=== PATIENT | female | born 1985 | race Caucasian/White ===

== ENCOUNTER 2020-09-18 09:00 | Outpatient (RCR) | payer OTHER, SELFPAY ==
--- NOTE | 2020-09-18 10:05 | BH.SGPN.GN ---
Behaviors/Verbalizations/Mental Status: [] Eye contact is good. Motor activity is appropriate. Appearance is casual. Speech is Appropriate. Mood is anxious. Affect is congruent. Thoughts are linear and logical. No evidence of psychosis. Client Response/Progress/Benefit: [] Pt was an active participant in group discussion and activity. Attentive during psychoeducation. Group identified the benefits of making changes or taking action on their mental wellness which included; increased confidence, healthier relationships, improved emotional health, reduction of anxiety, increased awareness, and improved recognition of triggers. Pt stated that the 3 biggest obstacles for her to taking action or making changes in his life are anxiety, toxic family, and unhealthy boundaries. Increased awareness of importance of taking action in mental health and obstacles that keep them from taking action. Will continue in IOP to prevent decompensation, increase healthy coping strategies, and improve functioning to return to work. Narrative Note: []
--- NOTE | 2020-09-18 11:10 | BH.SGPN.GN ---
Behaviors/Verbalizations/Mental Status: []Client alert and oriented, casually dressed and appropriately groomed. Eye contact good. Motor activity appropriate. Speech within normal limits. Affect constricted, mood anxious. Thoughts linear, logical, no signs of hallucinations or delusions. Client Response/Progress/Benefit: []Client responded well to session, taking notes and participating in worksheet discussion. Client set a goal to gain control over her use of unhealthy boundaries. Client wants to be able to work on this by saying no to someone at least once a week. Client stated she will keep self accountable by writing in journal the times she set a boundary. Worked with group to brainstorm ideas to help increase follow through of goal. Appeared to benefit from identifying a small goal to benefit mental health. Will continue IOP tx to prevent decompensation, increase healthy coping skills, and improve confidence. Narrative Note: []
--- NOTE | 2020-09-19 09:00 | BH.SGPN.GN ---
Behaviors/Verbalizations/Mental Status: [] Eye contact is good. Motor activity is appropriate. Appearance is casual. Speech is Appropriate. Mood is anxious. Affect is congruent. Thoughts are linear and logical. No evidence of psychosis. Reviewed daily check in sheet and no reports of suicidal ideations or intent. Client Response/Progress/Benefit: [] Pt participated when prompted. Attentive. Emotion for today is nervous. Daily symptom tracker notes 3/5 for anxiety and 2/5 for agitation. Shared that a mental health win was coming back for her 2nd day. Shared that she is less anxious today. Increased motivation yesterday. 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 Fear of coaching wrong or having other parents become upset with her. She worked through this and helped out which she states went well. Progress noted per pt report. Benefited from group support and encouragement. Will continue in IOP to prevent decompensation and improve functioning to return to work. Narrative Note: []
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
--- NOTE | 2020-09-19 11:08 | BH.SGPN.GN ---
Behaviors/Verbalizations/Mental Status: []Client alert and oriented, neatly dressed and groomed. Eye contact good. Motor activity appropriate. Speech within normal limits. Affect congruent, mood anxious. Thoughts linear, logical, no signs of hallucinations or delusions. Client Response/Progress/Benefit: []Client engaged in session AEB contributing to discussion and engaging in activity. Client did well to review current conflict style and it?s impact on mental health. Attentive and taking notes during discussion on strategies for more effectively managing conflict in own life. Client identified wanting to work on addressing conflict rather than avoiding it. Client plans to work on this by expressing her feelings with words rather than behaviors. Appeared to benefit from learning strategies to better manage conflict. First week of IOP tx. Will continue IOP tx to prevent decompensation, learn healthy coping skills, and increase self-awareness. Narrative Note: []
[2020-09-19 11:09] VITALS: BP 150/105; PULSE 106
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
--- NOTE | 2020-09-19 13:27 | BH.DR.ITP ---
Initial Treatment Plan Patient Information Visit Information: ADMISSION DATE: EXPECTED LOS: 4-6 weeks Problems/Symptoms Problem #1:: Depression Symptom:: Sadness, crying, worthlessness, guilt, anhedonia, biological disruption of sleep and appetite, decreased concentration Problem #2:: Anxiety Symptom:: Worry, rumination, panic attacks
--- NOTE | 2020-09-20 09:05 | BH.SGPN.GN ---
Behaviors/Verbalizations/Mental Status: [] Eye contact is good. Motor activity is appropriate. Appearance is casual. Speech is Appropriate. Mood is anxious. Affect is congruent. Thoughts are linear and logical. No evidence of psychosis. Reviewed daily check in sheet and no reports of suicidal ideations or intent. Client Response/Progress/Benefit: [] Pt participated when prompted. Attentive. Emotion for today is content. Mental health wins were identified. She reports panic attacks yesterday in response to her employer asking her for her password for a program. She began to ruminate and catastrophize that her employer is going to fire her and that they are looking for a replacement. She attempted to challenge these thoughts however limited benefit. These thoughts then led to other anxiety-producing thoughts ultimately leading to a panic attack. Group provided feedback and offered some suggestions which was beneficial. Limited progress noted. Pt will continue in IOP to improve functioning to return to work, increase healthy coping, and prevent decompensation. Narrative Note: []
--- NOTE | 2020-09-20 10:15 | BH.SGPN.GN ---
Behaviors/Verbalizations/Mental Status: []Client alert and oriented, neatly dressed and groomed. Eye contact good. Motor activity appropriate. Speech within normal limits. Affect constricted, mood anxious. Thoughts linear, logical, no signs of hallucinations or delusions. Client Response/Progress/Benefit: []Client was an engaged participant AEB client listening attentively to others. Client quiet, but she was nodding frequently and taking notes. The group worked together to identify barriers that keep one from choosing a new and healthier path to mental wellness. Attentive during psychoeducation on the chapters of life. Benefited from increased awareness and education on barriers to choosing new wellness paths and chapters of life. Client identified being in chapter 2 as client shared ?I like to pretend that things will change, but then they don?t change.? Client recognizes this leads to client staying ?stuck? for longer periods of time and can reinforce depression. Will continue IOP tx to prevent decompensation, improve daily functioning, and reduce distorted thoughts. Narrative Note: []
--- NOTE | 2020-09-20 11:15 | BH.SGPN.GN ---
Behaviors/Verbalizations/Mental Status: [] Client alert and oriented, casual dress, hygiene appropriate. Eye contact fair. Motor activity appropriate, at times. speech and tone WNL. Affect congruent. mood anxious. Thoughts linear, logical, no signs of hallucinations or delusions. Client Response/Progress/Benefit: []Client engaged in session AEB listening to discussion and provided input at times. Client attentive during psychoeducation about importance of maintenance plans. Client did well to work with the group to brainstorm strategies to promote making progress towards their desired chapter. Pt completed provided maintenance plan worksheet in small group. Pt identified personal triggers as: anger, sister, father's helplessness, and work. Identified warning signs as: increased stress, not sleeping, angry all the time, and throwing up. Pt identified healthy coping skills as: deep breathing, walking, and communicating needs. Seemed to benefit from increasing awareness of triggers, warning signs and coping skills. Will continue IOP tx to prevent decompensation, increase healthy coping and improve daily functioning.
--- NOTE | 2020-09-25 10:08 | BH.SGPN.GN ---
Behaviors/Verbalizations/Mental Status: []Client alert and oriented, neat and casual dress, hygiene tended to. Eye contact good. Motor activity appropriate. Speech within normal limits. Affect constricted, mood anxious and dysthymic. Thoughts linear, logical, no signs of hallucinations or delusions. Client Response/Progress/Benefit: [] Engaged participant AEB pt providing input throughout session and listening attentively to others. Engaged during psychoeducation portion reviewing fixed mindset. Nodding in agreement regarding examples shared by fellow participants. Pt worked with group to identify how a fixed mindset can impact mental health which included: keeping people stuck, reinforcing fear of failure, giving up, and negative self-talk. Able to identify personal examples of fixed thoughts which included ?I?ll never be good enough? and ?I?m never going to feel better?. Client shared that she believes these fixed thoughts in part because they are messages she has been herself for much of her life. Seemed to benefit from group by increasing awareness of how one's mindset can impact mental health and ability to cope. Pt will continue IOP tx this week to continue to promote healthy coping skills and continue to improve mental health sx management. Narrative Note: []
--- NOTE | 2020-09-25 10:31 | BH.MDN_ITS ---
Multi-Disciplinary Note - Note 60-min Individual Time Started:: 09:00 Date: 09/25/20 Purpose of session/treatment goals addressed:: Used session to review symptoms and progress in IOP, to obtain hx, and to begin treatment plan Eye Contact:: Good Motor Activity:: Restless Appearance:: Casual Speech:: Appropriate Mood:: Anxious Affect:: Congruent Thoughts:: Linear, Logical, No evidence of hallucinations/delusions noted Staff Interventions:: Provided education on mistaken beliefs and cognitive distortions. Provided worksheet. Started treatment plan. Client Response:: Pt shared that she laid around all weekend. Reports no m otivation to complete any tasks. Reports depression, hopelessness, and anxiety. Primary stressors reported to be dirty/cluttered house, increased responsibility since her mother , work, and negative view of self (Self-critical). Since her mother's pt has reported that her father relies on her for cooking, cleaning, landscaping, grocery, and finances. She began to noticed that this was impacting her overall motivation, relationship with daughter, and work. Started missing work beginning on January. States that she would wake up and start to get ready for work then begin to Freak out. Trigger was the clutter and uncleanliness of her house. This would lead to panic and ultimately depression and hopelessness. Symptoms would worsen and she would not go to work feeling to overwhelmed. When she stayed home she would not attempt to address the house due to lack of motivation. Also has anxiety about being in public for fear of seeing someone she knows (poor self-image) which leads to isolation. When she feels uncertain or not in control anxiety is worse. Identified lack of boundary setting with father and daughter for fear of conflict. People pleasing. Mental health exacerbating for several months with limited benefit from traditional outpatient. Risks/Concerns:: none noted. Progress Toward Goals/Plan:: Limited progress noted since starting IOP however she has been consistent with attendance. Reports I didn't want to come today due to anxiety but did. Not utilizing many skills however still early in IOP. Some increased awareness. Her employer has asked her to take leave for the next 6 weeks which she will attend IOP. Will continue in IOP to increase healthy coping skills, improve functioning, and prevent decompensation. Time Stopped:: 09:55
--- NOTE | 2020-09-25 10:31 | BH.MTP_ITS ---
Master Treatment Plan - Patient Information Program Physician:: Lennie Barr Primary Therapist:: Ned Haas - Psychiatric Diagnoses Psychiatric Diagnoses:: MDD, recurrent, severe, w/o psychosis. KAMILLA Diagnosis Code(s):: f33.2, f41.1 - Estimated LOS Estimated LOS (in weeks):: 6 Problem/Goal #1 - Problem/Goal #1 Stated Goal:: Client will reduce depressive symptoms, worthlessness, lack of concentration, and negative core beliefs associated with major depressive disorder AEB by pt self-report and decrease in depression scales on DSM outcomes. Description of Barriers: Limited support, Financial issues, hopelessness. Functional Impact: Due to depression and anxiety pt has not been to work consistently since 04/2020 - Objectives Objective #1 Stated Objective: Client will identify and replace 2-3 negative thinking patterns that reinforce depressive symptoms, self-hate, and negative self-talk. Interventions: Through individual and group counseling will help client identify distorted, negative beliefs about self and replace with more realistic, affirmative messages. Therapist will use CBT to help client increase insight to the connection between thoughts, emotions, and behaviors. Therapist will encourage client to practice thought challenging. Discharge Criteria: Pt will be able to identify 2-3 negative thought patterns and be able to challenge these patterns. Target Date: 10/30/20 Review Date: 10/17/20 Problem/Goal #2 - Problem/Goal #2 Stated Goal:: Client will reduce overall frequency, intensity, and duration of anxiety to improve functioning. Description of Barriers: Limited support, Financial issues, hopelessness. Functional Impact: Due to depression and anxiety pt has not been to work consistently since 04/2020 - Objectives Objective #1 Stated Objective: Client will identify 2-3 cognitive distortions that lead to rumination and learn 2-3 ways to manage these thoughts to better manage anxiety as shown by reduced DSM-5 scores for anxiety. Interventions: Through individual and group counseling will provide education on the most common cognitive distortions and teach client the connection between thoughts, emotions, and feelings. Therapist will assist client in identifying, challenging, and replacing dysfunctional thoughts with positive, more realistic thoughts. Discharge Criteria: Pt will have identified 2-3 common cognitive distortions and 2-3 skills to manage these thoughts. Target Date: 10/30/20 Review Date: 10/17/20 Objective #2 Stated Objective: Client will create weekly/daily small goals to begin to work on decreasing ruminations and hopelessness (cleaning house/ being more active) Interventions: Through individual and group counseling will increase awareness of setting SMART goals Discharge Criteria: Pt will have completed a majority of set goals and self- report decrease anxiety regarding cleaning/clutter and feeling overwhelmed. Target Date: 10/30/20 Review Date: 10/17/20
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
--- NOTE | 2020-09-25 11:13 | BH.SGPN.GN ---
Behaviors/Verbalizations/Mental Status: []Client alert and oriented, casually dressed and groomed. Eye contact good. Motor activity appropriate. Speech within normal limits. Affect congruent. mood anxious. Thoughts linear, logical, no signs of hallucinations or delusions. Client Response/Progress/Benefit: []Client responded well to session, making connections during activity and able to reframe fixed thinking. Client took her fixed thought of ?I will never be good enough at work? and discussed how this thought impacts her mental health. Client was able to use reframing techniques to create a more growth mindset thought of ?I don?t have to learn everything for work all in one day.? Client appeared to benefit from gaining awareness of her fixed thought patterns and practicing reframing techniques with peers. Client is increasing self-awareness of distorted thought patterns, but she is still learning how to combat these distortions. Will continue IOP tx to prevent decompensation, reduce negative thought patterns, and improve daily functioning. Narrative Note: []
--- NOTE | 2020-09-26 07:59 | BH.COMM ---
Communication Note - Communication with Client Communication Note: cancelled IOP today
--- NOTE | 2020-09-27 07:59 | BH.COMM ---
Communication Note - Communication with Client Communication Note: Called IOP again today. Called and spoke with pt. Tearful. Reports that she did not sleep much last night and needs to sleep therefore unable to attend IOP. Trigger to worsening mood she reports is related to conflict with her daughter. Daughter prefers to stay with her grandpa. Pt states that daughter is fearful that mom will have another seizure and she won't be able to help. We discussed importance of breaking anxiety/depression cycle today and not isolation and ruminating. She has plans to complete some house work and to have dinner with daughter and pt's father.
--- NOTE | 2020-09-28 09:38 | BH.COMM ---
Communication Note - Communication with Client Communication Note: Pt did not show for IOP this AM. Called and left message. Pt returned call stating that she overslept. This is 3rd cancellation this week. Anxiety, depression, and stressors appear to obstacles for her to get to IOP consistently. She agrees to attend 3x next week.
--- NOTE | 2020-10-01 09:05 | BH.SGPN.GN ---
Behaviors/Verbalizations/Mental Status: [] Eye contact is good. Motor activity is appropriate. Appearance is neat. Speech is Appropriate. Mood is anxious. Affect is congruent. Thoughts are linear and logical. No evidence of psychosis. Reviewed daily check in sheet and no reports of suicidal ideations or intent. Client Response/Progress/Benefit: [] Pt participated when prompted. Attentive.Emotion for today is stressed. Mental health win was forcing herself to go to family gatherings this weekend. Severe anxiety prior to the events however lessened when she arrived. Overall a positive weekend. Frustrations with her relationship with her daughter over the past week. Conflict with daughter over small things (clothes) and more significant struggles (daughter wants to spend less time with her mother). Pt reports that her daughter used to be attached to her however currently is distant which upsets patient. Increased sleep, lack of motivation, and laying on the couch last week. She missed IOP for several days. Limited progress noted. Benefited from group support, encouragment, and feedback. Will continue in IOP to improve functioning, decrease isolative behaviors, and prevent decompensation. Narrative Note: []
--- NOTE | 2020-10-01 10:15 | BH.SGPN.GN ---
Behaviors/Verbalizations/Mental Status: []Client alert and orient. Appearance casual and appropriately groomed. Speech an appropriate rate and tone. Motor activity WNL. Mood anxious, affect constricted.. No evidence of delusion or hallucinations.? Client Response/Progress/Benefit: []Client mostly quiet AEB limited contributions to discussion however did appear attentive to others comments. Group discussed potential barriers to communication including: yelling, name-calling, unmanaged emotions, facial expressions, and shutting down. Identified fear of conflict as a barrier to her assertively communicating with others. Helped group identified positives of having effective communication skills. Attentive during psychoeducation on the four communication styles. Client reported she most often uses passive communication style. Able to recognize negative outcomes of communication style. Seemed to benefit from increased awareness of the different communication styles and identify personal communication style. Client to continue in IOP tx to reduce negative thoughts, increase mood stability, and improve daily functioning.
--- NOTE | 2020-10-01 11:18 | BH.SGPN.GN ---
Behaviors/Verbalizations/Mental Status: []Client alert and oriented, neat and casually dressed and groomed. Eye contact good. Motor activity appropriate. Speech within normal limits. Affect constricted, mood depressed. Thoughts linear, logical, no signs of hallucinations or delusions. Client Response/Progress/Benefit: []Client engaged participant AEB attentiveness during discussion, nodding throughout, taking notes throughout, as well as providing input when prompted. Client noted that her use of passive-aggressive communication has led to feeling taken advantage of in the workplace. Attentive during psychoeducation about DEAR MAN (Describe, Express, Assert, Reinforce, Mindfulness, Appear confident, Negotiate) interpersonal communication skill. Client identified communication goal is to improve assertiveness by focusing on the skill of Express by more actively sharing how she really feels about things rather than just telling others what she thinks they might want to hear. Noted this would help reduce overall levels of resentment. Client seemed to benefit from increased insight into how personal communication style impacts mental health and relationships. Client progress variable as she continues to struggle with significant depression related to her relationship with her daughter. Will continue IOP tx to continue to promote healthy change behaviors, improve symptom management, and prevent decompensation. Narrative Note: []
--- NOTE | 2020-10-01 13:33 | BH.MDN ---
Multi-Disciplinary Note - Note 30-min Individual Time Started:: 12:20 Date: 10/01/20 Purpose of session/treatment goals addressed:: Reviewed progress and current symptoms. Addressed treatment goals 1 and 2 Eye Contact:: Fair Motor Activity:: Restless Appearance:: Neat Speech:: Appropriate Mood:: Anxious, Depressed Affect:: Congruent Thoughts:: Linear, Logical, No evidence of hallucinations/delusions noted Staff Interventions:: Role-played conversation about boundaries with support. Utilized VT to elicit change behaviors. Client Response:: Pt discussed some of her struggles last week. Significant anxiety and depression which led to isolation and avoidance of responsibilities. Missed several days of IOP due to anxiety and depression. Several crying spells. Insight that she is training herself to isolate and avoid with any type of distress. Able to identify short and prison effects of this. She reports that she wants to utilize opposite-action when in that distress. She was open to identify thought challenges and affirmations to utilize as well. Despite depressive episodes she did complete goals set last week. Identified two more daily goals to complete and wants to set boundaries with support. Role-played boundary setting conversation. She discussed group today on communication styles was helpful as she understands that she is passive and that her needs/thoughts are never met. Risks/Concerns:: none noted. Progress Toward Goals/Plan:: Limited progress noted due to continued use of unhealthy coping skills (sleep, avoidance). Increased awareness and insight in the past week, however struggles with taking action per her report. Will continue in IOP to increase healthy coping skills. Time Stopped:: 12:50
--- NOTE | 2020-10-03 10:21 | BH.COMM ---
Communication Note - Communication with Client Communication Note: Cancelled IOP today. Scheduled to see psychiatrist.
--- NOTE | 2020-10-04 09:05 | BH.SGPN.GN ---
Behaviors/Verbalizations/Mental Status: []Behaviors/Verbalizations/Mental Status: []Client alert and oriented, casually dressed. Eye contact fair. Motor activity appropriate. Speech within normal limits. Affect constricted, mood anxious and dysthymic. Thoughts linear, logical, no signs of hallucinations or delusions. Reviewed client?s symptom tracker, no risk or plan for suicide ideation. Client Response/Progress/Benefit: []Pt responded well to session AEB pt openly sharing thoughts and feelings and listening attentively to peers. Pt reported mental health positive as setting a boundary with her dad which she said was incredibly difficult. Pt stated additional positives as closing on her new house today and hired a cleaning person to help around her house since she does so much for her dad. Pt stated continued stressor is her daughter not wanting to stay the night at pt's house because daughter is worried pt will have another seizure. Pt seemed to benefit from support from peers. Pt to continue IOP to increase consistent use of skills, challenge distorted thoughts and prevent decompensation. Narrative Note: []
--- NOTE | 2020-10-04 10:15 | BH.SGPN.GN ---
Behaviors/Verbalizations/Mental Status: [] Eye contact is good. Motor activity is appropriate. Appearance is casual. Speech is Appropriate. Mood is anxious. Affect is congruent. Thoughts are linear and logical. No evidence of psychosis. Client Response/Progress/Benefit: [] Pt participated at times during the group discussion, however was engaged in group activity. Attentive during psychoeducation. Along with peers pt contributed to identifying common myths associated with self-care which included; has to be fun, is expensive, has to be by yourself, is selfish, take ups to much time, has to be related to self-hygiene. Group worked together to debunk these myths as well as identify benefits to self-care such as more relaxed, decreased stress, increased motivation, improved mood, and improved relationships. Barriers to completing self-care were identified to be laziness, lack of motivation, not enough time, other things are more important, procrastination, and feeling as if I don't deserve it. Able to relate group activity to topic. Benefited from group by increased awareness of the importance of self-care in mental health. Will continue in IOP to improve functioning to return to work, stabilize anxiety, and develop coping skills to better manage distress. Narrative Note: []
--- NOTE | 2020-10-04 11:18 | BH.SGPN.GN ---
Behaviors/Verbalizations/Mental Status: []Client alert and oriented, casually dressed and groomed. Eye contact good. Motor activity appropriate. Speech within normal limits. Affect constricted, mood anxious and depressed. Thoughts linear, logical, no signs of hallucinations or delusions. Client Response/Progress/Benefit: []Client engaged participant AEB client taking notes during discussion, providing input when prompted, and listening attentively to peers. Continues to struggle with significant anxiety which impacts participation. Attentive in group discussion on the various areas of self-care, benefits, and types of self-care activities for each area. Client completed worksheet in which client identified current self-care practices and what self-care activities client wants to start using. Client reported wanting work on physical self-care, specifically practicing more appreciation for what her body is physically able to do. Client shared she wants to create time to regularly go for walks with her daughter each night as she has already made progress in improving her diet. Appeared to benefit from reflecting on the area of self-care client can improve and setting a small goal. Will continue IOP tx to increase mood stability, combat distortions, and further promote healthy coping skills to prevent decompensation. Narrative Note: []
--- NOTE | 2020-10-05 10:22 | BH.COMM ---
Communication Note - Communication with Client Communication Note: Cancelled IOP again today
--- NOTE | 2020-10-09 09:01 | BH.SGPN.GN ---
Behaviors/Verbalizations/Mental Status: []Client alert and oriented, casually dressed and groomed. Eye contact fair to good. Motor activity appropriate. Speech within normal limits. Affect congruent, mood depressed and anxious. Thoughts linear, logical, no signs of hallucinations or delusions. Reviewed client?s symptom tracker, no risk for suicidal ideation, plan, or intent as of 10/09/20. Client Response/Progress/Benefit: []Client responded well to session, attentive, and contributing to discussion. Client reports feeling tired and anxious this morning. Attributes this to recent stressor of her sister coming to visit. Client discussed that she and her sister have a tense relationship and client know she needs to set boundaries but is struggling to do so. Expressed fear of confrontation as primary barrier. Receptive of supportive feedback and suggestions from group. Continues to endorse depressive symptoms which reinforce low motivation levels. Client was able to identify some wins, such as attending IOP despite not wanting to and making an effort to continue to focus on what?s within her control. Appeared to benefit from connecting with peers and supportive feedback. Will continue IOP tx to further improve mood stability, reduce avoidance behaviors, and reinforce healthy coping skills. Narrative Note: []
--- NOTE | 2020-10-09 10:05 | BH.SGPN.GN ---
Behaviors/Verbalizations/Mental Status: []Client alert and oriented, neatly dressed and groomed. Eye contact good. Motor activity appropriate. Speech within normal limits. Affect constricted, mood euthymic and anxious. Thoughts linear, logical, no signs of hallucinations or delusions. Client Response/Progress/Benefit: []Pt was an active participant in group discussion. Attentive during psychoeducation. Along with peers pt was able to provide insight on the importance of goal-setting. Group identified that goals are important because they motivate, increase self-esteem, and are needed to have progress. Group also worked together to identify barriers to goal-setting which included; negative self-talk, not having supportive people, minimizing progress, and toxic people. Pt reported she will make excuses such as ?there?s always tomorrow? which keeps client from accomplishing goals. Benefited from increased awareness of benefits and barriers to goal-setting. Pt will continue in IOP to promote the use of healthy coping skills, reduce isolative behaviors, and improve daily functioning. Narrative Note: []
--- NOTE | 2020-10-09 12:21 | BH.COMM ---
Communication Note - Communication with Client Communication Note: Pt reported to staff feeling dizzy and nauseated. Reports feeling this way for the past 2 days. Reports that she has not eaten in the past few days either noting that looking at food makes her nauseated. She reports feeling like this previous to a seizure which occurred a month ago which she was taken to the ER for as well. She was suppose to follow up with PCP after that ER visit however has not followed through. Pt is struggling to stand and walk per her report. Pt was agreeable with transporting her to ER to be evaluated medically. Significant anxiety which is long-standing and no danger to herself or others. Handed off to ER staff at [facility].
--- NOTE | 2020-10-10 08:21 | BH.COMM ---
Communication Note - Communication with Client Communication Note: cancelled IOP today.
== END 2020-10-10 23:59 ==
LOC: BHIOP 09:00
PROVIDERS: PCP Family Medicine; Referring Provider Psychiatry & Neurology Psychiatry; Visit Provider Psychiatry & Neurology Psychiatry
DX: F33.2 Major depressive disorder, recurrent severe without psychotic features (principal); F41.1 Generalized anxiety disorder; Z72.0 Tobacco use; F50.2 Bulimia nervosa; Z79.899 Other long term (current) drug therapy; Z81.8 Family history of other mental and behavioral disorders
CPT/HCPCS: S9480; 90832; 90837; 90853

== ENCOUNTER 2020-10-09 12:13 | Emergency (ER) | payer OTHER, SELFPAY ==
[2020-10-09 12:14] VITALS: BP 160/73; PULSE 112; RESP 16; TEMP 36.6; O2SAT 97; BMI 34.4
--- NOTE | 2020-10-09 13:45 | EDS_ITS ---
HPI <Dr. Andres Her DO - Last Filed: 10/09/20 16:45> History of Present Illness Chief Complaint: Dizziness Informant: patient Narrative Narrative: Patient presents the emergency department with dizziness/lightheadedness and anxiety. She states that she has a lot of anxiety is in group therapy for this. She states that is been worse over the past several days and she has not had anything to eat since Thursday. She notes a bit of a weight loss. She reports that she has been trying to drink some fluids but her urine is getting darker. She mentioned this to the therapist and they recommended she come to emergency. She denies any syncope. No chest pain shortness of breath. PFSH <Dr. Andres Her DO - Last Filed: 10/09/20 16:45> [facility] Medical History (Updated 10/09/20 @ 18:[address] Araceli Mendez DO) Alcohol use disorder Bulimia nervosa, purging type Generalized anxiety disorder Major depressive disorder, recurrent severe without psychotic features Home Medications venlafaxine [Effexor XR] 75 mg PO DAILY 09/19/20 [History Last Taken Unknown] cephalexin 500 mg PO Q12 #10 cap 10/09/20 [Rx Last Taken Unknown] levetiracetam [Keppra] 500 mg PO BID #60 tab 10/09/20 [Rx Last Taken Unknown] naltrexone 50 mg PO DAILY 10/09/20 [History Last Taken Unknown] potassium chloride 20 meq PO BID #5 ea 10/09/20 [Rx Last Taken Unknown] Allergy/AdvReac Type Severity Reaction Status Date / Time Sulfa (Sulfonamide Allergy Hives Verified 10/09/20 12:16 Antibiotics) Surgical History (Updated 10/09/20 @ 14:05 by Loulou Bowman) Hx of tonsillectomy Social History (Updated 10/09/20 @ 13:[address] Andres Her DO) Smoking Status: Never smoker substance use type: does not use ROS <Dr. Andres Her DO - Last Filed: 10/09/20 16:45> ROS ED Constitutional Constitutional ED: Reports weight loss and other Details: Lightheadedness ; Denies chills Eyes Eyes: Denies change in vision or diplopia ENT ENT ED: Denies ear pain, rhinorrhea or sore throat Cardiovascular Cardiovascular: Denies chest pain, orthopnea, palpitations or racing heartbeat Respiratory/Chest Respiratory/Chest: Denies cough, dyspnea or orthopnea Gastrointestinal Gastrointestinal: Reports nausea; Denies abdominal pain, diarrhea or vomiting Genitourinary Genitourinary ED: Denies dysuria, hematuria or urinary frequency Musculoskeletal Musculoskeletal: Denies arthralgias or myalgias Integumentary Denies abscess or rash Neurologic Neurologic: Denies headache(s) or weakness Psychiatric Psychiatric: Reports anxiety; Denies depression, suicidal ideation or suicidal thoughts Endocrine Endocrinology: Denies polydipsia, polyphagia or polyuria Allergic/Immunologic Allergic/Immunologic ED: Denies mouth swelling, tongue swelling or urticaria EXAM <Dr. Andres Her, DO - Last Filed: 10/09/20 16:45> Physical Exam Const Vital Signs: 10/09/20 12:14 10/09/20 14:04 10/09/20 14:50 Temperature 97.9 F Temperature Source Temporal Pulse Rate 112 H 96 102 H Respiratory Rate 16 16 16 Respiratory Effort Normal Respiratory Pattern Normal Blood Pressure 160/73 H 138/104 H 150/118 H Blood Pressure Mean 102 115 128 Pulse Ox 97 94 96 Oxygen Delivery Method Room Air Room Air Room Air 10/09/20 17:23 10/09/20 17:50 Temperature Temperature Source Pulse Rate 105 H 101 H Respiratory Rate 18 18 Respiratory Effort Respiratory Pattern Blood Pressure 128/98 H 124/94 H Blood Pressure Mean 108 104 Pulse Ox 94 94 Oxygen Delivery Method Room Air Room Air Positive well nourished and well developed General Appearance ED: well developed HEENT Reports normocephalic, head/scalp atraumatic and moist mucous membranes Eyes PERRL and EOMs intact bilaterally Neck no lymphadenopathy, supple and no JVD Resp normal respiratory effort and clear to auscultation bilaterally Cardio regular rate, regular rhythm and no murmurs GI normal to inspection, nondistended, normoactive bowel sounds and non-tender Palpation: soft Back/Spine no CVA tenderness and normal ROM Extremity normal to inspection General Extremety ED: Negative for edema General Extremity: Negative for edema Neuro oriented x3 and CN's II-XII intact bilaterally Sensorium / Orientation: alert Motor Exam: strength 5/5 throughout Psych mental status grossly normal Mood & Affect: Negative for depressed or tearful Skin no rashes or lesions noted and no wounds <Dr. Araceli Mendez, DO - Last Filed: 10/09/20 18:43> Physical Exam Const Vital Signs: 10/09/20 12:14 10/09/20 14:04 10/09/20 14:50 Temperature 97.9 F Temperature Source Temporal Pulse Rate 112 H 96 102 H Respiratory Rate 16 16 16 Respiratory Effort Normal Respiratory Pattern Normal Blood Pressure 160/73 H 138/104 H 150/118 H Blood Pressure Mean 102 115 128 Pulse Ox 97 94 96 Oxygen Delivery Method Room Air Room Air Room Air 10/09/20 17:23 10/09/20 17:50 Temperature Temperature Source Pulse Rate 105 H 101 H Respiratory Rate 18 18 Respiratory Effort Respiratory Pattern Blood Pressure 128/98 H 124/94 H Blood Pressure Mean 108 104 Pulse Ox 94 94 Oxygen Delivery Method Room Air Room Air MDM <Dr. Andres Her, DO - Last Filed: 10/09/20 16:45> MDM MDM Narrative Medical decision making narrative: CBC is normal. Potassium 3.0. Urinalysis negative patient received potassium supplementation and prescription for same. Prior to discharge while waiting for her IV fluids to finish the patient sustained a generalized seizure. She was incontinent of urine and bit the right side of her tongue. After the patient recovered from the seizure she tells me that she did go to an outside hospital after her first 1 but they did not do a CT of her brain. The seizure lasted approximately 1 to 1-1/2 minutes. She received a dose of Ativan and I loaded her with Keppra. We will start her on Keppra and refer her to neurology. Lab Data Attestation: I reviewed the patient's lab results. Labs: Laboratory Results - last 24 hr 10/09/20 10/09/20 10/09/20 13:52 14:02 14:02 WBC 6.8 RBC 3.98 L Hgb 12.0 Hct 36.5 L MCV 91.7 MCH 30.2 MCHC 32.9 RDW Std Deviation 67.8 H RDW Coeff of Pedro 21.7 H Plt Count 179 MPV 10.2 Immature Gran % (Auto) 0.700 Neut % (Auto) 67.4 Lymph % (Auto) 21.0 [place] % (Auto) 9.0 Eos % (Auto) 0.9 Baso % (Auto) 1.0 Absolute Neuts (auto) 4.6 Absolute Lymphs (auto) 1.43 Nucleated RBC % 0.3 Anisocytosis 1+ Sodium 132 L Potassium 3.0 L Chloride 92 L Carbon Dioxide 30.0 Anion Gap 10 BUN 3 L Creatinine 0.64 Estim Creat Clear Calc 119.31 Est GFR (MDRD) Af Amer 135 Est GFR (MDRD) Non-Af 112 BUN/Creatinine Ratio 4.7 L Glucose 112 H Calcium 7.4 L Urine Color Slime Urine Clarity Sl. Cloudy Urine pH 7.0 Ur Specific [place] 1.005 Urine Protein 30 H Urine Glucose (UA) Normal Urine Ketones 15 H Urine Occult Blood Negative Urine Nitrite Positive H Urine Bilirubin 6 H Urine Urobilinogen 12 H Ur Leukocyte Esterase 25 H Urine RBC 0 SEEN Urine WBC 0-5 SEEN Ur Squamous Epith Cells 0-5 SEEN Ur Transition Epith Cell 0-5 SEEN Urine Bacteria 1+ Urine Mucus 0 SEEN Urine Test Negative Radiography Diagnostic Testing: Radiology Impression Brain CT 10/09/20 16:44 IMPRESSION: Normal unenhanced CT scan of the brain. Electronically Signed: Ghassan Rodriguez MD at 17:16 EDT , Service support , <Dr. Araceli Mendez, DO - Last Filed: 10/09/20 18:43> [facility] Narrative Medical decision making narrative: Patient signed out to me pending review of CT and urinalysis. Urinalysis does show nitrates patient states she has been having urinary frequency as well as abnormal urine color. She will be treated for UTI with Keflex. She is counseled on seizure precautions and need for out patient follow-up. Lab Data Labs: Laboratory Results - last 24 hr 10/09/20 10/09/20 10/09/20 13:52 14:02 14:02 WBC 6.8 RBC 3.98 L Hgb 12.0 Hct 36.5 L MCV 91.7 MCH 30.2 MCHC 32.9 RDW Std Deviation 67.8 H RDW Coeff of Pedro 21.7 H Plt Count 179 MPV 10.2 Immature Gran % (Auto) 0.700 Neut % (Auto) 67.4 Lymph % (Auto) 21.0 [place] % (Auto) 9.0 Eos % (Auto) 0.9 Baso % (Auto) 1.0 Absolute Neuts (auto) 4.6 Absolute Lymphs (auto) 1.43 Nucleated RBC % 0.3 Anisocytosis 1+ Sodium 132 L Potassium 3.0 L Chloride 92 L Carbon Dioxide 30.0 Anion Gap 10 BUN 3 L Creatinine 0.64 Estim Creat Clear Calc 119.31 Est GFR (MDRD) Af Amer 135 Est GFR (MDRD) Non-Af 112 BUN/Creatinine Ratio 4.7 L Glucose 112 H Calcium 7.4 L Urine Color Slime Urine Clarity Sl. Cloudy Urine pH 7.0 Ur Specific [place] 1.005 Urine Protein 30 H Urine Glucose (UA) Normal Urine Ketones 15 H Urine Occult Blood Negative Urine Nitrite Positive H Urine Bilirubin 6 H Urine Urobilinogen 12 H Ur Leukocyte Esterase 25 H Urine RBC 0 SEEN Urine WBC 0-5 SEEN Ur Squamous Epith Cells 0-5 SEEN Ur Transition Epith Cell 0-5 SEEN Urine Bacteria 1+ Urine Mucus 0 SEEN Urine Test Negative Radiography Diagnostic Testing: Radiology Impression Brain CT 10/09/20 16:44 IMPRESSION: Normal unenhanced CT scan of the brain. Electronically Signed: Ghassan Rodriguez MD at 17:16 EDT , Service support , Discharge Plan Triage Chief Complaint: Dizziness Other Complaint: Anxiety ED Provider: Andres Her Dx/Rx/DC Orders Clinical Impression: Seizure, Acute hypokalemia, Dizziness, Anxiety, UTI (urinary tract infection) Instructions: Urinary Tract Infections in Women, ED Seizure New Onset Unknown ... Prescriptions: New levetiracetam [Keppra] 500 mg tablet 500 mg PO BID Qty: 60 RF: 0 potassium chloride 20 mEq packet 20 meq PO BID Qty: 5 RF: 0 cephalexin 500 mg capsule 500 mg PO Q12 Qty: 10 RF: 0 No Action venlafaxine [Effexor XR] 37.5 mg Capsule,Extended Release 24hr 75 mg PO DAILY RF: 0 naltrexone 50 mg Tablet 50 mg PO DAILY RF: 0 Primary Care Provider: Alli Hart Referrals: Alli Hart MD [Primary Care Provider] - As soon as possible Indra aBbb MD [STAFF PHYSICIAN] - As soon as possible Disposition Disposition: Home, Self Care
[2020-10-09 14:01] LABS: Mucous, Urine 0 SEEN /hpf (<or=2+); Red Blood Cells-Urine 0 SEEN /hpf (0-5)
[2020-10-09 14:04] VITALS: BP 138/104; PULSE 96; RESP 16; O2SAT 94
[2020-10-09] MEDS: 0.9% Normal Saline 1,000 ML 1000 ML IV (14:06)
[2020-10-09 14:10] LABS: Color, Urine Amber (Yellow); Glucose, Dipstick Normal (Normal); Ketone-Dipstick 15 mg/dl (Negative); Leukocyte Esterase-Dipstick 25 /ul (Negative); Nitrite-Dipstick Positive (Negative); Occult Blood-Urine Negative /ul (Negative); Protein-Dipstick 30 mg/dl (Negative); Specific Gravity, Urine 1.005 (1.002-1.030); Urine Clarity Sl. Cloudy (Clear); Urine Urobilinogen 12 mg/dl (Normal)
[2020-10-09 14:11] LABS: Urine Bilirubin Dipstick 6 mg/dL (Negative)
[2020-10-09 14:14] LABS: Absolute Lymphocyte Count 1.43 X10^3/uL (0.83-4.51); Absolute Neutrophil Count 4.6 X10^3/uL (2.0-7.7); Basophil# 0.07 X10^3/uL; Eosinophil# 0.06 X10^3/uL; Eosinophils% 0.9 % (0-5); Hematocrit 36.5 % (37-47); Lymphocyte # 1.43 X10^3/ul (0.83-4.51); Mean Corp Hgb Conc 32.9 g/dL (32-36); Mean Corpuscular Hgb 30.2 pg (27.0-32.0); Mean Corpuscular Volume 91.7 fL (81-99); Mean Platelet Vol. 10.2 fl (6.2-12.0); Monocyte# 0.61 X10^3/uL; NRBC Flagged by Analyzer 0.3 % (0-5); Neutrophil # 4.59 X10^3/uL (2.7-7.7); Neutrophil % 67.4 % (47-70); POSITIVE MORPHOLOGY YES; Platelet Count 179 K/mm3 (150-450); RBC Distribution Width CV 21.7 % (11.6-14.6); RBC Distribution Width SD 67.8 fl (35.1-43.9); Red Blood Count 3.98 M/mm3 (4.2-5.4); White Blood Count 6.8 K/mm3 (4.4-11.0)
[2020-10-09 14:15] LABS: Differential Indicated SCAN CRITERIA MET
[2020-10-09 14:18] LABS: Bacteria 1+ /hpf (None Seen); Squamous Epithelial Cells - UA 0-5 SEEN /hpf (5-10)
[2020-10-09 14:21] LABS: Transitional Epithelial - Ur 0-5 SEEN /hpf (0-5); White Blood Cells 0-5 SEEN /hpf (0-5)
[2020-10-09 14:21] LABS: Anion Gap 10 (5-15); BUN 3 mg/dL (7-18); BUN/Creat Ratio 4.7 RATIO (10-20); Calcium,Total 7.4 mg/dL (8.5-10.1); Chloride 92 mmol/L (98-107); Creatinine, Serum 0.64 mg/dL (0.55-1.02); EST Glomerular Filtration Rate 112 mL/min (>60); Est Glom Filt Rate - Afr Amer 135 mL/min (>60); Estimated Creatinine Clearance 119.31 ml/min; Glucose 112 mg/dL (74-106); Sodium Level 132 mmol/L (136-145)
[2020-10-09 14:22] LABS: Internal QC Validated? YES +Cl - CLEAR BKGD; Pregnancy, Urine Negative Negative
[2020-10-09 14:44] LABS: Anisocytosis 1+
[2020-10-09] MEDS: LORazepam 2 MG/ML Syringe 1 MG IV (14:49)
[2020-10-09 14:50] VITALS: BP 150/118; PULSE 102; RESP 16; O2SAT 96
--- NOTE | 2020-10-09 14:51 | ED.RN ---
pt had tonic clonic seizure lasting approx 30 seconds, ativan given by senthil fagna, iv per dr. anne verbal order. pt rolled to side and suctioned. blood in pt mouth from tongue bite. pt now postictal, responsive to voice. pt educated on situation verbalizes understanding. dr. york at bedside to re-evaluate
[2020-10-09] MEDS: levETIRAcetam IV 1,000 MG/100 ML BAG 400 MG IV (15:17)
[2020-10-09] MEDS: Potassium Chloride Oral Tablet 20 MEQ 40 MEQ PO (15:19)
--- NOTE | 2020-10-09 16:44 | CT_ITS ---
STUDY: CT BRAIN WITHOUT CONTRAST REASON FOR EXAM: Female, 34 years old. Seizure RADIATION DOSAGE (If Supplied By Facility): CTDIvol = ( 44.99 ) mGy, DLP = ( 779.24 ) mGycm TECHNIQUE: Transaxial CT imaging of the brain was performed without administration of intravenous contrast material. Individualized dose optimization techniques were used for this CT. COMPARISON: No relevant priors. FINDINGS: Normal soft tissue structures. Normal calvarium. Normal size ventricles and extra-axial spaces for the patient''s age. Normal white matter tracts of the cerebral hemispheres. Normal basal ganglia and thalami. Normal brainstem. Normal cerebellum. There is no intracranial hemorrhage. There are no findings of an acute ischemic infarction. Normal visualized paranasal sinuses. CT/Brain/Head without Contrast IMPRESSION: Normal unenhanced CT scan of the brain. Electronically Signed: Ghassan Rodriguez MD at 17:16 EDT , Service support ,
[2020-10-09 17:23] VITALS: BP 128/98; PULSE 105; RESP 18; O2SAT 94
[2020-10-09 17:50] VITALS: BP 124/94; PULSE 101; RESP 18; O2SAT 94
--- NOTE | 2020-10-09 18:12 | ED.RN ---
pt awaiting re-eval per ed md. dr. yan informed of pt continued dizziness.
[2020-10-09 18:50] VITALS: BP 123/88; RESP 16; O2SAT 99
== END 2020-10-09 18:51 | disposition home or self-care (01) ==
PROVIDERS: Emergency Provider Emergency Medicine; PCP Family Medicine
DX: N39.0 Urinary tract infection, site not specified (principal); R42 Dizziness and giddiness; E87.6 Hypokalemia; R56.9 Unspecified convulsions; F33.9 Major depressive disorder, recurrent, unspecified; F41.1 Generalized anxiety disorder
CPT/HCPCS: 70450; 80048; 81001; 81025; 85025; 96361; 96365; 96375; 96376; 99285; J7030; J7050; A4216

== ENCOUNTER 2020-10-11 08:27 | Outpatient (RCR) | payer OTHER, SELFPAY ==
[2020-10-11 00:33] VITALS: BP 150/105; PULSE 106
--- NOTE | 2020-10-11 09:05 | BH.SGPN.GN ---
Behaviors/Verbalizations/Mental Status: [] Eye contact is good. Motor activity is appropriate. Appearance is casual. Speech is Appropriate. Mood is anxious. Affect is congruent. Thoughts are linear and logical. No evidence of psychosis. Reviewed daily check in sheet and pt reports 0/5 for suicidal thoughts and 0/5 for intent. Client Response/Progress/Benefit: [] Pt participated when prompted. Attentive. Daily symptom tracker noted 3/5 for anxiety. Emotion for today is content. Mental health win is that she is going to see her work family today. Shared with group stressor having having family coming into town today. Asked from feedback on how to be assertive and not let her get inside my head She is anticipating conflict with certain family and doesn't want to Walk on eggshells around her. Group provided feedback and suggestions. Pt did not mention her trip to the ER a few days ago for a seizure. Reports being motivated to set boundaries and be assertive however knows things will go bad. Benefited from group feedback. Will continue in IOP to improve functioning to return to work, increase healthy coping skills, and prevent decompensation. Narrative Note: []
--- NOTE | 2020-10-11 10:05 | BH.SGPN.GN ---
Behaviors/Verbalizations/Mental Status: []Client alert and oriented, neatly dressed and groomed. Eye contact good. Motor activity appropriate. Speech within normal limits. Affect congruent, mood euthymic. Thoughts linear, logical, no signs of hallucinations or delusions. Client Response/Progress/Benefit: []Client engaged in session AEB taking notes and listening attentively to peers. Client shared connecting with the importance of setting boundaries, noting that boundaries ?are certain things we let people do or not do to us.? Client assisted group with identifying benefits of setting boundaries such as reduced stress and improved relationships. Client shared that she often has a hard time saying no which leads to client feeling resentful and frustrated. Listened during psychoeducation on different types of boundaries. Client seemed to benefit from increased awareness of how boundaries impact mental health and the different types of boundaries there are. Client?s progress continues to be limited, but she did appear in a better mood today. Recent ER visit and appears to be more physically stable today. Will continue IOP tx to prevent worsening of symptoms, increase healthy coping skills, and improve daily functioning. Narrative Note: []
--- NOTE | 2020-10-11 11:10 | BH.SGPN.GN ---
Behaviors/Verbalizations/Mental Status: []Client alert and oriented, casually dressed and appropriately groomed. Eye contact fair. Motor activity appropriate. Speech within normal limits. Affect constricted, mood depressed and anxious. Thoughts linear and intact. no signs of delusions or hallucinations. Client Response/Progress/Benefit: []Client passive participant AEB client providing limited input throughout discussion, however did appear to listen attentively to discussions. Client engaged in the boundary self-assessment activity. Client chose to not share what she most struggles with in boundary setting. Client was attentive during psychoeducation on the different boundary styles. Client appeared to connect with others AEB client nodding her head that she doesn't like to say no because doesn't want to hurt others. Participated in group discussion brainstorming various strategies for improving healthy personal boundaries. Seemed to benefit from increased awareness of personal boundary style and impact this has on mental health. Will continue IOP tx to improve daily functioning, increase consistent application of healthy coping skills and prevent decompensation. Narrative Note: []
--- NOTE | 2020-10-12 08:55 | BH.COMM ---
Communication Note - Communication with Client Communication Note: cancelled IOP due to dizziness. Was scheduled to meet with this therapist to plan for the weekend stressors.
--- NOTE | 2020-10-17 10:10 | BH.SGPN.GN ---
Behaviors/Verbalizations/Mental Status: []Client alert and oriented, casually dressed and groomed. Eye contact poor. Motor activity appropriate. Speech within normal limits. Affect constricted, mood anxious. Thoughts linear, logical, no signs of hallucinations or delusions. Client Response/Progress/Benefit: []Client passive participant AEB client not providing input throughout session, however did appear to listen to peers throughout session. Client listened as group identified factors that contribute to how we define ourselves which included: roles, expectations, labels, comparisons to others, how were raised, and setbacks. Client listened to group identify and discuss social and perceived stigma. Client chose to not share how mental health stigma has impacted her life. Client seemed to benefit from increased awareness of how mental health stigma can impact progress and self-worth. Progress could be hindered by client's continued passive participation in group. Client to continue IOP tx to improve daily functioning, increase consistent use of healthy coping and prevent decompensation. Narrative Note: []
--- NOTE | 2020-10-17 12:08 | BH.MDN ---
Multi-Disciplinary Note - Note 45-min Individual Time Started:: 09:15 Date: 10/17/20 Purpose of session/treatment goals addressed:: Review current symptoms and progress in IOP. Addressed treatment goals 1 and 2. Eye Contact:: Good Motor Activity:: Appropriate Appearance:: Casual Speech:: Appropriate Mood:: Anxious Affect:: Congruent Thoughts:: Linear, Logical, No evidence of hallucinations/delusions noted Staff Interventions:: Utilized MN techniques to elicit change behaviors. Psychoeducation on cognitive distortions and thought record worksheet. Client Response:: Pt reports progress since last session. Primary stressor for the past week has been stress associated with her sister coming into town. Ruminated on worst-case scenario with and possible conflicts with sisters for a week prior. We did develop a plan to set boundaries and be assertive with sister prior to this weekend. Pt reports that things are going surprisingly well Reports that her and her sister are getting great. Sister has been very helpful. No significant conflicts noted per pt. Sister has prolonged her stay an extra couple days and pt is happy about this. She denies any significant depressive episodes. Denies any panic attacks. Denies isolating. She is ruminating most on work on this point as she feels that she has set boundaries with family and is being more assertive. After visit last week she felt that her boss was short with her and currently believes that they are better without me and have moved on. Challenged point on this and pointed out cognitive distortions. She was receptive and had insight how Mind Reading and predicting the future have impacted her. Worked with therapist on how to challenge these distortions. Risks/Concerns:: None reported. Progress Toward Goals/Plan:: Pt reports progress. States that she is setting boundaries and reports that her depression and anxiety is less frequent and severe. Claims to be utilizing skills learned in IOP. Attendance has been inconsistent due to medical and psychosocial stressors so while this is her 4 week she has in reality only attended 9 times. We had a discussion on returning to work as pt reports some struggles financially and we agreed that she could return on reduced schedule the week of 10/29/20 with goal to transition back slowly. She was given assignment to develop a concrete plan to help with negative thoughts and emotions in the AM prior to work which have been an obstacle in the past. Also given homework to complete thought record which she will identify automatic thoughts, cognitive distortion, and rational response. Will continue in IOP to maintain gains, increase healthy coping, and stabilize mood. Time Stopped:: 10:00
--- NOTE | 2020-10-17 12:32 | PCM.BH.PN_ITS ---
Progress Note Progress Note: History of Present Illness/Interim History: [] Patient is a 34-year-old single female who is seen in follow-up at the [facility] behavioral health IOP program. I last saw the patient 3 weeks ago and due to her not attending on a regular basis this is the second visit. The patient has a history of having a seizure in August 2020 after she relapsed on alcohol and became dehydrated. She was seen in the ER at that time. The patient had an episode on October 09, 2020 where she had nausea and dizziness and decreased eating and drinking due to severe anxiety over her sister coming to visit. The patient went to the emergency room and hat was found to have a quite low sodium and potassium. While in the emergency room the patient had a seizure with incontinence of urine and biting her tongue. She was placed on Keppra for this. She had normal CT scan. She was referred to her neurologist and has an appointment to see the neurologist this week. The patient has not relapsed on alcohol since September 05, 2020 and she feels that the naltrexone may be helping her have less cravings. Her mood is better although she is still somewhat depressed at times. She is functioning better at home but there is still some trouble motivating herself to get much done. She denies hopelessness or worthlessness. Her sleep is better at 6 to 7 hours a night and she feels more rested during the day. She denies any suicidal ideation, plan for suicide or passive thoughts of . Current Psychiatric Medications: [] Keppra 500 mg p.o. twice daily (for seizure disorder); Effexor XR was restarted at 75 mg on September 19, 2020 after the patient had stopped it on her own. The Effexor XR was increased to 150 mg by the patient's outpatient psychiatric provider 1 week ago and the patient is tolerating it well. Mental Status Examination: [] Patient is a 34-year-old female who appears normal for stated age and is casually dressed and groomed with good hygiene. She has no psychomotor agitation or retardation. She is cooperative and pleasant during the interview. Eye contact is good and speech is normal rate and rhythm and fluent with no pressure. Mood is depressed. Affect is constricted. Thought process is goal-directed and organized. Thought content: There is no evidence of passive thoughts of , passive or active suicidal ideation, homicidal ideation, hallucinations or delusions. Judgment is intact. Insight is good. Impulsivity is low to moderate. Diagnoses: [] 1. Major depressive disorder, recurrent, severe without psychosis 2. Generalized anxiety disorder 3. Alcohol use disorder 4. Bulimia nervosa with purging by emesis 5. 2 episodes of seizure triggered by dehydration Plan: [] The patient will continue the IOP program at [facility] as the structure, support, education, and group therapy will hopefully prevent worsening of the patient's symptoms. She felt safe during the interview and if it anytime she does not feel safe she will let us know or go to the emergency room. The risks, options, possible complications and side effects of the med ication were discussed with the patient and she understands and accepts these. No medication changes were made today's and she will continue the current medications. She will follow up with her neurologist as scheduled later this week. She will continue to follow-up with outpatient psychiatric providers also. A refill was sent in for the naltrexone 30 with 1 refill. I will see the patient in follow-up in 2 weeks.
--- NOTE | 2020-10-17 13:50 | BH.TPR ---
Treatment Plan Review Date of Admission:: 09/25/20 Date of Treatment Plan Review:: 10/17/20 Admitting Diagnoses:: MDD (F33.2), KAMILLA (F41.1) Current Diagnoses:: MDD (F33.2), KAMILLA (F41.1) Patient's Response to Treatment:: Inconsistent attendance due to psychosocial stressors and medical issues (seizures) which has impacted progress. When she attends she is engaged. Status of Current Problems and Symptoms: Completed DSM cross cutting scales which indicate a 30% reduction in overall symptoms. DSM also indicates a 25% decrease in anxiety. No changes in depression scores. Anxiety and depression continue to impact daily functioning. Inconsistent use of skills however is making progress. Problem #1 Problem Name:: Depression Status of Goals:: obj 1- Not completed, able to identify negative thought patterns however limited action just awareness Team Recommendations:: Continue with treatment plan. Problem #2 Problem Name:: Anxiety Status of Goals:: obj 1- not completed, has just begun to identify cog distortions and thought record. obj 2- not completed, makes goals on consistent basis and has been completing these however objective is to do this daily while in IOP. Team Recommendations:: Continue with treatment plan.
--- NOTE | 2020-10-18 09:05 | BH.SGPN.GN ---
Behaviors/Verbalizations/Mental Status: [] Eye contact is good. Motor activity is appropriate. Appearance is casual. Speech is Appropriate. Mood is anxious. Affect is congruent. Thoughts are linear and logical. No evidence of psychosis. Reviewed daily check in sheet and no reports of suicidal ideations or intent Client Response/Progress/Benefit: [] Pt participated when prompeted. Attentive. Did not provide feedback to peers. Emotion for today is hopeful. Mental health wins included not reacting to a sly comment from her sister yesterday. Shared the comments and how she would have reacted in the past. Continues to ruminate on interactions with her employer through text. Mind-reading has led to assumption that employer is not excited to have her back and that her replacement is doig better than here. Group provided feedback to challenge these thoughts which appeared to be helpful. She is planning on having a conference call with employer this week to discuss plan to return on reduced schedule. Progress noted per pt report. Will continue in IOP to prevent decompensation, increase health coping, and improve functioning to return to work. Narrative Note: []
--- NOTE | 2020-10-18 10:10 | BH.SGPN.GN ---
Behaviors/Verbalizations/Mental Status: [] Client alert and oriented, neat and casually dressed and groomed. Eye contact fair to good. Motor activity appropriate. Speech within normal limits. Affect congruent, mood depressed and anxious. Thoughts linear, logical, no signs of hallucinations or delusions. Client Response/Progress/Benefit: [] Pt was an attentive participant in group discussion AEB actively listening, providing increased input than usual, taking notes, as well as completed group worksheet. Attentive as group discussed how learning to manage anger can positively improve mental health sx management and relationships. Group worked together to define anger and discussed the ways anger can impact one internally and externally. Pt reported that anger can be triggered by external situations and well as internal things such as not meeting one?s own expectations. Pt completed the iceberg exercise and identified emotions that tend to ?live under the surface? of anger. Pt also gained awareness of her typical responses to anger which included: shutting down, isolating herself, becoming short or really passive-aggressive with others, and making sarcastic jokes. Benefited from group by increasing understanding of the impact of anger on mental health. Recommended continued tx to improve emotion regulation skills, prevent decompensation, and continue to work on improving anxiety management to return to work. Narrative Note: []
--- NOTE | 2020-10-18 11:10 | BH.SGPN.GN ---
Behaviors/Verbalizations/Mental Status: []Client alert and oriented, neatly dressed and groomed. Eye contact good. Motor activity appropriate. Speech within normal limits. Affect constricted, mood euthymic. Thoughts linear, logical, no signs of hallucinations or delusions. Client Response/Progress/Benefit: []Pt was engaged throughout AEB participating in discussion and taking notes. Contributed as group brainstormed healthy coping skills for better managing anger which included: deep breathing, counting, exercise, self-reflection questions, and opposite action. Pt also gained awareness of physical warning signs pt has when feeling anger. Pt shared she becomes passive-aggressive when angry which is something pt wants to change. Pt appeared to benefit from identifying different techniques to manage anger as well as gaining awareness of warning signs. Pt selected ?counting to 10 like a whale? to better manage anger. Will continue IOP tx to increase mood stability, improve daily functioning, and further reduce negative thinking patterns. Narrative Note: []
--- NOTE | 2020-10-26 10:12 | BH.COMM ---
Communication Note - Communication with Client Communication Note: Client cancelled three IOP sessions this week. Client and IOP therapist will discuss client's transition back to work next week.
--- NOTE | 2020-10-29 10:40 | BH.COMM ---
Communication Note - Communication with Client Communication Note: Client cancelled IOP again today. She reports feeling nauseous since last night. She is fearful of having another seizure. Appointment with PCP on 10/31/20. She cancelled her neurologist appt 2 weeks ago due to an issue with her daughter and rescheduled it till 11/19/20. I spoke with her over the phone. Plan was to return to work tomorrow on reduced schedule for next 2 weeks however it appears as if she will not due to her illness. She missed IOP all last week and today. She claims to be utilizing skills. We discussed strategies for work tomorrow and reviewed coping skills. She is not eating and only drinking Gatorade again which is what occurred previous to most recent seizure. Encouraged her to go to urgent care or ER if necessary today.
--- NOTE | 2020-10-31 09:09 | BH.COMM ---
Communication Note - Communication with Client Communication Note: Pt cancelled IOP again today. She has an appt with her PCP regarding her nausea and poor appetite. She did go to work yesterday however only for a half day due to anxiety. At this point patient has missed her last 5 scheduled IOP sessions for various reasons. Her anxiety continues to impact her daily functioning and her prognosis for returning to work on a consistent basis is poor. It had been impossible to problem-solve, develop coping strategies for return to work anxiety, to aid in transition back to work, and to prevent decompensation due to pt's lack of attendance and engagement in IOP.
--- NOTE | 2020-11-02 10:57 | BH.COMM ---
Communication Note - Communication with Client Communication Note: No show for group today. Reached out. If no response will discharge.
--- NOTE | 2020-11-05 08:36 | BH.DS ---
Discharge Summary - Demographics Date of Admission:: 09/18/20 Discharge Date: 11/05/20 Presenting Problems at Admission:: Pt is a 35 year old female with hx of MDD and KAMILLA. No previous psychiatric admissions. Referred to IOP by her outpatient psychiatrist (Dr. Elena) and her employer due to mental health symptoms interfering with functioning. Pt has been missing work consistently due to depression, hopelessness, fear, anxiety, and crying spells. Decompensating since the sudden of her mother in 01/2020. Since of mother pt has reported feeling overwhelmed due to expectations to care for her father. Endorses poor sleep, poor appetite, low energy, decreased motivation, isolation, anhedonia, and hopelessness. Weekly panic attacks. Ruminations. Excessive worry that harm will come to her or her daughter. Crying spells throughout the day. Mental health impacting social, familial, and work functioning. Pt states I'm unable to be productive at work. Her employer recently suggested taking 6 weeks off to complete an IOP. Denies active suicidal ideations, plan, or intent. No hx of attempts. Hx of Alcohol Dependence. Was sober for a year till recent relapse due to MH symptoms. Family hx of schizophrenia (aunt). Medication compliant. Discharge Diagnoses:: 1. Major depressive disorder, recurrent, severe without psychosis. 2. Generalized anxiety disorder Reason for Discharge:: Inconsistent attendance. No showed or cancelled last 6 IOP sessions for various reasons. Not engaged and has not responded to attempts to contact. - Treatment Progress During Treatment & Response: Limited progress due to inconsistent attendance. She has not attended an IOP session since 10/19/20 cancelling or no showing for the past 6 IOP sessions. Since her admission on 09/18/20 she has only sporadically attended 10 IOP sessions. While progress was limited she did report decreased anxiety and increased functioning. DSM cross cutting scales at 4 week wojciech indicate a 30% reduction in overall symptoms. DSM also indicates a 25% decrease in anxiety. No changes in depression scores. While reduction noted she continued to report mental health symptoms impacting functioning. She returned to work on 10/30/20 per her report and had a PCP appointment on 10/31/20 related to her seizures. Issues Still to be Addressed:: Anxiety, panic, mental health impacting ability to function, depression, boundary setting, hx of alcohol abuse, hx of eating disorder, and grief. Pt has had 2 seizures in the past 2 months. A neurologist appointment was made for her through [facility] however she recently cancelled. Her noncompliance with treatment and appts is a significant obstacle to progress. Discharge Recommendations/Instructions:: Pt did not respond to attempt to contact. She is currently linked with Dr. Elena at [place] [id number] for psychiatry and Chance Cruz at [facility] for counseling. Recommended to follow up with these providers as well as PCP and neurology. Discharge Handout: Complete Discharge Handout with client on aftercare options and continuity of care.
== END 2020-11-05 09:50 | disposition home or self-care (01) ==
LOC: BHIOP 08:27
PROVIDERS: PCP Family Medicine; Referring Provider Psychiatry & Neurology Psychiatry; Visit Provider Psychiatry & Neurology Psychiatry
DX: F33.2 Major depressive disorder, recurrent severe without psychotic features (principal); F41.1 Generalized anxiety disorder; Z79.899 Other long term (current) drug therapy
CPT/HCPCS: S9480; 90834; 90853